=== PATIENT | male | born 1985 | race African-American/Black ===

== ENCOUNTER 2018-02-20 02:59 | Emergency (ER) | payer SELFPAY ==
[~2018-02-20] VITALS: Ht 175.3 cm; Wt 86.2 kg
[2018-02-20 03:15] VITALS: BP 151/87
[2018-02-20] MEDS ORDERED: IBUPROFEN 800 MG TAB PO ONE (04:45)
[2018-02-20 10:02] LABS: Hepatitis B Surface Antibody Negative
[2018-02-20 10:12] LABS: Hepatitis B Surface Antigen Negative (Negative)
== END 2018-02-20 05:28 ==
LOC: ER 02:59
DX: R60.9 Edema, unspecified (principal); H05.229 Edema of unspecified orbit
CPT/HCPCS: 36415; 70450; 70486; 86703; 86706; 86803; 87340